=== PATIENT | female | born 1975 | race Caucasian/White ===

== ENCOUNTER 2017-09-02 20:00 | Emergency (ER) | payer BC ==
[~2017-09-02] VITALS: Ht 157.5 cm; Wt 52.3 kg
[~2017-09-02 20:00] MED LIST: ATIVAN 0.50.5 MG/TAB PO; ATIVAN 1MG T1 MG/TAB PO; ATIVAN0.5 MG PO; ATIVAN1 MG PO; BENTYL 10MG10 MG/CAP; BIRTH CONTROL; CELEXA10 MG; CELEXA10 MG PO; CENA K20 MEQ/15 PO; KARIVA1 TAB PO; KLONOPIN0.5 MG PO; LEVBID0.375 MG; LEVBID0.375 MG PO; POTASSIUM CH2 MEQ/ML PO; RITALIN 5MG5 MG/TAB PO; ZOFRAN4 M1 PO
[2017-09-02 20:02] VITALS: TEMP 97.6
[2017-09-02 20:36] LABS: BASO # 0.1 (0.0-0.2); BASO % 0.6 % (0.0-2.0); EOS # 0.1 (0.0-0.7); EOS % 0.5 % (0-4.0); GRAN # 9.8 (1.4-6.5); GRAN % 76.8 % (42.2-75.2); HEMATOCRIT 42.6 % (37.0-47.0); HEMOGLOBIN 13.9 g/dl (12.5-16.0); LYMPH # 1.9 (1.2-3.4); LYMPH % 14.7 % (20.0-51.0); MEAN CELL VOLUME 88 fl (80.0-100.0); MEAN CORPUSCULAR HEMOGLOBIN 29 pg (27.0-31.0); MEAN CORPUSCULAR HGB CONC 33 g/dl (33.0-37.0); MEAN PLATELET VOLUME 10.6 fl (7.4-10.4); MONO # 0.9 (0.1-0.6); MONO % 6.9 % (1.7-9.3); PLATELET COUNT 397 K/mm3 (130-400); RED BLOOD COUNT 4.87 M/mm3 (4.10-5.30); WHITE BLOOD COUNT 12.7 K/mm3 (4.8-10.8)
[2017-09-02 20:49] LABS: CALCIUM 9.7 mg/dL (8.4-10.2); CREATININE, serum 0.77 mg/dL (0.52-1.25)
[2017-09-02 21:40] VITALS: BP 124/86
[2017-09-02 21:50] VITALS: PULSE 85
== END 2017-09-02 22:34 | disposition home or self-care (01) ==
LOC: COL.ER 20:00
PROVIDERS: Emergency Medicine
DX: R06.02 Shortness of breath (principal); R42 Dizziness and giddiness; F41.9 Anxiety disorder, unspecified; F98.8 Other specified behavioral and emotional disorders with onset usually occurring in childhood and adolescence
CPT/HCPCS: J7030

== ENCOUNTER → 2017-12-11 | Outpatient (CLI) | payer BC | LOC: BHSO 15:27 | DX: F41.1 Generalized anxiety disorder (principal) | CPT/HCPCS: G0463 ==

== ENCOUNTER → 2018-06-12 | Outpatient (CLI) | payer BC | LOC: BHSO 14:54 | DX: F90.0 Attention-deficit hyperactivity disorder, predominantly inattentive type (principal) | CPT/HCPCS: G0463 ==

== ENCOUNTER → 2018-07-17 | Outpatient (CLI) | payer BC | LOC: COL.LAB 18:17 | DX: B27.90 Infectious mononucleosis, unspecified without complication (principal) ==